=== PATIENT | female | born 1980 | race Caucasian/White ===

== ENCOUNTER 2016-10-08 21:19 | Emergency (ER) | payer OTHER ==
[~2016-10-08] VITALS: Ht 160 cm; Wt 72.2 kg
[~2016-10-08 21:19] MED LIST: AMOX1TAB12 PO; AMOX500C5 PO; BUSP5TAB59 PO; CEPH-331 PO; CYCL10TA45 PO; DOXY25SU2 PO; FEXO-14 PO; GUAI-585 PO; HYDR-3702 PO; HYDR-3811 PO; IBP800T PO; IBUP-793 PO; LEVO25TA2 PO; LORA0.5T PO; METF1000 PO; NAPR500T3 PO; NF-FLON16G NS; NO HOME MEDICATIONS; ONDA4TAB8 PO; PHEN118S12 PO; PRED20TA PO; PRM25T GT; SULF-228 PO; TAMS-8 PO; TRM50T PO; [UNRECOGNIZED DRUG - OTHER] PO
[2016-10-08] MEDS ORDERED: AMOXICILLIN/CLAVULANATE 875MG-125MG (AUGMENTIN) TABLET PO ONE (23:35)
[2016-10-08] MEDS ORDERED: ED- PROMETHAZINE/CODEINE SYRUP 6.25MG-10MG/5 ML (PHENERGAN) 118 ML BTL PO ONE (23:35)
[2016-10-08] MEDS ORDERED: AMOX-358 PO (23:39)
[2016-10-08 23:56] VITALS: BP 123/77
== END 2016-10-08 23:55 | disposition home or self-care (01) ==
LOC: ED 21:20
DX: J01.90 Acute sinusitis, unspecified (principal); J02.9 Acute pharyngitis, unspecified; F17.210 Nicotine dependence, cigarettes, uncomplicated
CPT/HCPCS: 99282; 99283